=== PATIENT | male | born 1985 | race Caucasian/White ===

== ENCOUNTER → 2017-07-12 | Outpatient (REF) | LOC: WSOH 13:06 → WSPT 15:00 | DX: Z02.1 Encounter for pre-employment examination (principal) ==

== ENCOUNTER → 2017-07-14 | Outpatient (REF) | LOC: WSOH 14:46 | DX: Z02.89 Encounter for other administrative examinations (principal) ==

== ENCOUNTER 2018-03-06 23:12 | Emergency (ER) | payer OTHER ==
[~2018-03-06] VITALS: Ht 182.9 cm; Wt 90.9 kg
[2018-03-06 23:17] VITALS: TEMP 98.3
[2018-03-06 23:42] VITALS: BP 156/105; PULSE 90
[2018-03-07 00:25] LABS: HIV 1/2 Antibodies Non-Reactive; HIV-1p24 Antigen Non-Reactive
[2018-03-07 14:07] LABS: HEPATITIS B SURFACE ANTIGEN Negative (()); HEPATITIS C VIRUS ANTIBODY Negative (())
== END 2018-03-07 00:02 | disposition home or self-care (01) ==
LOC: COL.ER 23:12
PROVIDERS: Nurse Practitioner
DX: S61.231A Puncture wound without foreign body of left index finger without damage to nail, initial encounter (principal); W46.1XXA Contact with contaminated hypodermic needle, initial encounter; Y92.89 Other specified places as the place of occurrence of the external cause

== ENCOUNTER 2018-03-29 10:20 | Emergency (ER) | payer OTHER ==
[~2018-03-29] VITALS: Ht 182.9 cm; Wt 93.2 kg
[2018-03-29 10:33] VITALS: BP 149/108; PULSE 66; TEMP 98.3
[2018-03-29 12:10] LABS: HIV 1/2 Antibodies Non-Reactive; HIV-1p24 Antigen Non-Reactive
[2018-03-29 23:40] LABS: HEPATITIS B SURFACE ANTIGEN Negative (()); HEPATITIS C VIRUS ANTIBODY Negative (())
== END 2018-03-29 11:47 | disposition home or self-care (01) ==
LOC: COL.ER 10:20
PROVIDERS: Physician Assistant
DX: S61.032A Puncture wound without foreign body of left thumb without damage to nail, initial encounter (principal); W46.1XXA Contact with contaminated hypodermic needle, initial encounter

== ENCOUNTER 2018-12-19 09:25 | Outpatient (RCR) | payer OTHER | END 2019-03-19 | disposition home or self-care (01) | LOC: WSOH | DX: Z77.21 Contact with and (suspected) exposure to potentially hazardous body fluids (principal); W46.0XXD Contact with hypodermic needle, subsequent encounter ==